=== PATIENT | female | born 1980 | race Caucasian/White ===

== ENCOUNTER 2017-07-23 22:45 | Inpatient (IN) | payer OTHER ==
[~2017-07-23] VITALS: Ht 165.1 cm; Wt 75.0 kg
[2017-07-23 22:52] VITALS: BP 132/77
[2017-07-23] MEDS ORDERED: PENICILLIN G POTASSIUM IV 5 MU in D5W MINI-BAG PLUS 100 ML IV STA (22:57)
[2017-07-23 23:35] LABS: MEAN CORPUSCULAR HEMOGLOBIN 31.3 pg (27.0-33.0); MEAN CORPUSCULAR HGB CONC 34.2 g/dl (32.0-36.5); MEAN CORPUSCULAR VOLUME 91.7 fl (80.0-96.0); RED CELL DISTRIBUTION WIDTH 12.9 % (11.5-14.5); WHITE BLOOD COUNT 11.6 K/mm3 (4.0-10.0)
[2017-07-24] VITALS (8 sets, daily range): BP systolic 126–141; BP diastolic 64–92
[2017-07-24] MEDS ORDERED: PENICILLIN G POTASSIUM IV 2.5 MU in D5W 100 ML IV SCH (03:00)
[2017-07-24] MEDS ORDERED: OXYTOCIN 30 UNITS IN 0.9% NaCl 500ML IV BAG (J2590) As Ordered ONE (04:34)
[2017-07-24] MEDS ORDERED: OXYTOCIN DRIP 30 UNITS in APPROPRIATE DILUENT 1 EA IV SCH (04:44)
[2017-07-24] MEDS ORDERED: PROMETHAZINE 25 MG TAB PO PRN (04:45)
[2017-07-24] MEDS ORDERED: DOCUSATE SODIUM 100 MG CAP PO PRN (04:45)
[2017-07-24] MEDS ORDERED: DIBUCAINE 1% OINTMENT 30GM TOP PRN (04:45)
[2017-07-24] MEDS ORDERED: MEASLES,MUMPS,RUBELLA VACCINE INJ (MMR-II) (90707) SC SCH (04:45)
[2017-07-24] MEDS ORDERED: RHOGAM 300 MCG (1500 IU) INJ (J2790) IM SCH (04:45)
[2017-07-24] MEDS ORDERED: ONDANSETRON 4MG/2ML VIAL (J2405) IV PRN (04:45)
[2017-07-24] MEDS ORDERED: ACETAMINOPHEN 500 MG TAB PO PRN (04:45)
[2017-07-24] MEDS ORDERED: METHYLERGONOVINE MALEATE 0.2 MG/ML VIAL (J2210) IM PRN (04:45)
[2017-07-24] MEDS ORDERED: IBUPROFEN 800 MG TAB As Ordered ONE (04:52)
[2017-07-24] MEDS ORDERED: PRENTAB9 PO (06:52)
[2017-07-24] MEDS: PRENATAL VITAMINS CHEWABLE TABLET PO SCH (09:03)
[2017-07-24] MEDS: IBUPROFEN 800 MG TAB PO PRN ×2 (15:04→23:05)
[2017-07-25 06:13] VITALS: BP 126/65
[2017-07-25 06:36] LABS: MEAN CORPUSCULAR HEMOGLOBIN 31.5 pg (27.0-33.0); MEAN CORPUSCULAR HGB CONC 34.5 g/dl (32.0-36.5); MEAN CORPUSCULAR VOLUME 91.4 fl (80.0-96.0); RED CELL DISTRIBUTION WIDTH 12.8 % (11.5-14.5); WHITE BLOOD COUNT 12.6 K/mm3 (4.0-10.0)
[2017-07-25] MEDS: PRENATAL VITAMINS CHEWABLE TABLET PO SCH (08:26)
[2017-07-25] MEDS ORDERED: COLA100C5 PO (11:44)
[2017-07-25] MEDS ORDERED: ACET50TA PO (11:44)
[2017-07-25] MEDS ORDERED: MOTR200T44 PO (11:44)
[2017-07-25] MEDS ORDERED: DIBU1OIN TOP (11:44)
== END 2017-07-25 13:17 | disposition home or self-care (01) | DRG 775 ==
LOC: M LDO 22:45 → M LDI 22:49 → M OBS 07-24 07:36
PROVIDERS: ADMIT Obstetrics & Gynecology; ATTEND Obstetrics & Gynecology
PROC: 10E0XZZ Delivery of Products of Conception, External Approach (ICD-10-PCS; principal; 2017-07-24)
DX: O42.02 Full-term premature rupture of membranes, onset of labor within 24 hours of rupture (principal); Z37.0 Single live birth; Z3A.37 37 weeks gestation of pregnancy; O99.820 Streptococcus B carrier state complicating pregnancy